=== PATIENT | male | born 1970 | race Caucasian/White ===

== ENCOUNTER → 2024-09-20 | Outpatient (CLI) | payer BC ==
--- NOTE | 2024-09-20 10:06 | CA ---
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-10 Codes: Patient History: DIFFICULTY IN BREATHING, HYPERCHOLESTEROLEMIA, HTN, CURRENT SMOKER Medications: Meds past 24 hrs: Pretest Chest Pain: STRESS TEST Alfredo Protocol Exercise Duration (min:sec): 06:[address] Depressions (mm): Angina Score: Wiggins Score: Resting HR (bpm): 93 Peak HR (bpm): 140 Resting BP (mmHg): 134 / 92 Peak BP (mmHg): 220 / 94 MPHR: 164 Target HR: 139 % MPHR: 85 METS: 7.1 Total Dose: Peak Dose: Atropine: Double Product: 41498 BP Response: Stress Termination: TARGET HR REACHED/MAX EXERTION Stress Symptoms: NO SYMPTOMS Stress Summary: ECG ANALYSIS Resting ECG: Normal sinus rhythm normal axis normal intervals Stress ECG: Patient exercised on Alfredo protocol for 6 minutes achieving 7 mets 85% of predicted maximal heart rate without chest pain or diagnostic ST segment depression CONCLUSIONS Average exercise tolerance Negative stress test by EKG criteria Dr. Reid Fatima MD (Electronically Signed) Final Date: 20 September 2024 10:05
== END | disposition home or self-care (01) ==
LOC: RADNMMAIN 08:36
PROVIDERS: ATTEND Family Medicine
DX: I25.10 Atherosclerotic heart disease of native coronary artery without angina pectoris (principal); I10 Essential (primary) hypertension; E78.00 Pure hypercholesterolemia, unspecified; F17.200 Nicotine dependence, unspecified, uncomplicated; R06.00 Dyspnea, unspecified
CPT/HCPCS: 93017